=== PATIENT | female | born 1970 | race Caucasian/White ===

== ENCOUNTER → 2017-03-18 | Outpatient (CLI) | payer OTHER ==
--- NOTE | ~2017-03-18 | CR7 ---
[facility] A Service of [facility] RADIOLOGY TEXT RESULTS PATIENT: JOSE WHITE LOCATION: [facility] : 66 UNIT #: [id number] AGE: [address]: Anthony Nelson MD SEX: F ORDER DR: [id number] [facility] [address] [place], [place] [address] [id number] O MR#: [id number] Acc #: [id number] NAME: JOSE WHITE : 1970 SEX: F STUDY DATE/TIME: 03/18/2017 10:10 UNIT: [facility] ROOM: STUDY DESCRIPTION: CR Abdomen Single AP View Attending Physician: Anthony Nelson M.D. Referring Physician: Anthony Nelson M.D. Ordering Physician: Anthony Nelson M.D. Primary Care Physician: Primary Care Physician No MEDICAL IMAGING REPORT This report is preliminary unless electronic signature is present EXAM Abdomen single view, 03/18/2017 10:10 hours HISTORY 46-year-old with history of kidney stones, status post lithotripsy with stent placement. Symptoms for 1 week. COMPARISON None FINDINGS Supine view of the abdomen demonstrates a right ureteral double-J stent with the upper loop at the renal pelvis and the lower loop in the bladder. There are stones or fragments of stones at the lower pole right kidney with the largest measuring 6.0 mm. No definite stones are seen at the upper pole or over the left kidney. No ureteral calculi. IMPRESSION There is a right ureteral double-J stent extending from the right renal pelvis to the bladder. There are several stones or fragments of stones projecting over the lower pole right kidney with the largest measuring 6.0 mm. No stones are seen in the ureters. Dictated by... Mariaa Marquez M.D. THIS IS AN ELECTRONICALLY VERIFIED REPORT Mariaa Marquez M.D. at 03/19/2017 9:08 AM Thi TD: 03/19/2017 08:50 JOB #: [id number] [facility] A Service of [facility] RADIOLOGY TEXT RESULTS PAT[facility]: [id number] 66 UNIT #: [id number] AGE: [address]: Anthony Nelson MD SEX: F ORDER DR: MEDICAL IMAGING REPORT Page 1 of 1 COPY
== END | disposition home or self-care (01) ==
LOC: CRAD 09:42
DX: N20.0 Calculus of kidney (principal); Z96.0 Presence of urogenital implants
CPT/HCPCS: 74000